=== PATIENT | female | born 1965 | race Caucasian/White ===

== ENCOUNTER 2025-05-31 15:16 | Inpatient (IN) | payer SELFPAY ==
[~2025-05-31] VITALS: Ht 167.6 cm; Wt 62.6 kg
[2025-05-31 15:23] VITALS: O2SAT 98
[2025-05-31] MEDS: SODIUM CHLORIDE 0.9% 1,000 ML IV ONE (15:45)
[2025-05-31 15:56] LABS: BASOPHILS % 0.3 % (0.0-2.0); EOSINOPHILS % 2.2 % (0.0-5.0); HEMATOCRIT. 23.4 % (36.0-48.0); HEMOGLOBIN. 7.6 g/dL (12.0-16.0); LYMPHOCYTES % 14.4 % (20.0-50.0); MEAN PLATELET VOLUME 10.4 fl (7.4-10.4); MONOCYTES % 6.0 % (2.0-8.0); NEUTROPHILS % 77.1 % (40.0-76.0); PLATELET 119 x1000/uL (130-400); RED BLOOD CELL COUNT 2.73 mill/uL (4.2-5.4); RED CELL DISTRIBUTION WIDTH 15.4 % (11.6-14.6)
[2025-05-31 16:11] LABS: TROPONIN I HIGH SENSITIVITY 6 ng/L (3.0-34)
[2025-05-31 16:17] LABS: CREATININE 3.2 mg/dL (0.6-1.0); UREA NITROGEN BLOOD 77 mg/dL (9-23)
[2025-05-31 16:18] LABS: PROTEIN TOTAL 6.0 g/dL (6.0-8.3)
[2025-05-31 16:19] LABS: ASPARTATE AMINOTRANSFERASE 13 IU/L (<34); BILIRUBIN DIRECT < 0.1 mg/dL (<=3.0); BILIRUBIN TOTAL 0.3 mg/dL (0.1-1.0)
[2025-05-31] MEDS ORDERED: SODIUM CHLORIDE 0.9% 1,000 ML IV ONE (17:00)
[2025-05-31 18:32] LABS: BG DEOXYHEMOGLOBIN 21.4 % (0.0-5.0)
[2025-05-31 20:00] VITALS: BP 148/66; PULSE 90; RESP 18; TEMP 35.9; O2SAT 100
[2025-05-31] MEDS ORDERED: ONDANSETRON HCL 4MG/2ML INJ IV PRN (20:30)
[2025-05-31] MEDS ORDERED: ACETAMINOPHEN 325MG TABLET PO PRN ×2 (20:30)
[2025-05-31] MEDS ORDERED: IPRATROPIUM/ALBUTEROL 0.5-3(2.5)MG/3ML NEB HHN PRN (20:30)
[2025-05-31] MEDS ORDERED: CLONIDINE 0.1MG TABLET PO PRN (20:30)
[2025-05-31] MEDS ORDERED: LACTATED RINGERS 1,000 ML IV SCH (21:15)
[2025-05-31 22:00] LABS: CREATININE 3.0 mg/dL (0.6-1.0); UREA NITROGEN BLOOD 70 mg/dL (9-23)
[2025-05-31] MEDS ORDERED: DEXTROSE 50% WATER 50ML SYRINGE IV PRN (22:00)
[2025-05-31] MEDS: BLOOD SUGAR DIAGNOSTIC STRIP TEST SCH (22:02)
[2025-05-31] MEDS: ATORVASTATIN CALCIUM 40MG TABLET PO SCH (22:10)
[2025-05-31] MEDS: INSULIN LISPRO 100 UNITS/ML SUBCUT SCH (22:11)
[2025-05-31 22:12] LABS: FOLIC ACID (FOLATE) SERUM 9.99 ng/mL (>5.38); VITAMIN B12 SERUM 1247 pg/mL (211-911)
[2025-05-31] MEDS: SODIUM CHLORIDE 0.9% 1,000 ML IV SCH (22:12)
[2025-05-31 23:27] VITALS: BP 148/66; PULSE 90; RESP 18; TEMP 35.9732
[2025-06-01] VITALS: BP 134/69; PULSE 90; RESP 20; TEMP 36.2; O2SAT 100
[2025-06-01 01:11] LABS: PHOSPHORUS 4.4 mg/dL (2.5-4.9)
[2025-06-01 04:00] VITALS: BP 131/69; PULSE 84; RESP 17; TEMP 35.8; O2SAT 100
[2025-06-01 07:04] LABS: BASOPHILS % 0.3 % (0.0-2.0); EOSINOPHILS % 3.1 % (0.0-5.0); HEMATOCRIT. 23.8 % (36.0-48.0); HEMOGLOBIN. 7.8 g/dL (12.0-16.0); LYMPHOCYTES % 23.8 % (20.0-50.0); MEAN PLATELET VOLUME 10.3 fl (7.4-10.4); MONOCYTES % 7.2 % (2.0-8.0); NEUTROPHILS % 65.6 % (40.0-76.0); PLATELET 117 x1000/uL (130-400); RED BLOOD CELL COUNT 2.80 mill/uL (4.2-5.4); RED CELL DISTRIBUTION WIDTH 15.3 % (11.6-14.6)
[2025-06-01 07:20] LABS: CREATININE 2.8 mg/dL (0.6-1.0); TRIGLYCERIDE 108.0 mg/dL (0-150); UREA NITROGEN BLOOD 63.0 mg/dL (9-23)
[2025-06-01 07:21] LABS: LDL CHOLESTEROL 58.0 mg/dL (5-100)
[2025-06-01 07:25] LABS: T4 FREE 0.97 ng/dL (0.89-1.76)
[2025-06-01 08:00] VITALS: BP 117/54; PULSE 88; RESP 18; TEMP 36.4; O2SAT 97
[2025-06-01] MEDS: ENOXAPARIN 30MG/0.3ML SYR SUBCUT SCH (09:00)
[2025-06-01] MEDS: INSULIN GLARGINE 100 UNITS/ML SUBCUT SCH (10:00)
[2025-06-01] MEDS: ASPIRIN 81MG EC TABLET PO SCH (10:09)
[2025-06-01] MEDS: AMLODIPINE 10MG TABLET PO SCH (10:10)
[2025-06-01] MEDS: PANTOPRAZOLE SODIUM 40 MG/VIAL IV SCH (10:10)
[2025-06-01 12:00] VITALS: BP 157/68; PULSE 85; RESP 18; TEMP 36.6; O2SAT 100
[2025-06-01] MEDS: SODIUM CHLORIDE 0.9% 1,000 ML IV SCH (14:00)
[2025-06-01 16:00] VITALS: BP 142/69; PULSE 85; RESP 18; TEMP 36.6; O2SAT 100
[2025-06-01 20:00] VITALS: BP 135/72; PULSE 92; RESP 17; TEMP 36.6; O2SAT 98
[2025-06-01] MEDS: EPOETIN ALFA-EPBX 4,000 UNITS/ML VIAL SUBCUT SCH (20:42)
[2025-06-02] VITALS (8 sets, daily range): BP systolic 106–147; BP diastolic 62–88; PULSE 85–91; RESP 14–17; TEMP 36.3–36.7; O2SAT 98–100
[2025-06-02 08:20] LABS: BASOPHILS % 0.2 % (0.0-2.0); EOSINOPHILS % 2.9 % (0.0-5.0); HEMATOCRIT. 23.0 % (36.0-48.0); HEMOGLOBIN. 7.7 g/dL (12.0-16.0); LYMPHOCYTES % 26.4 % (20.0-50.0); MEAN PLATELET VOLUME 10.8 fl (7.4-10.4); MONOCYTES % 6.9 % (2.0-8.0); NEUTROPHILS % 63.6 % (40.0-76.0); PLATELET 118 x1000/uL (130-400); RED BLOOD CELL COUNT 2.72 mill/uL (4.2-5.4); RED CELL DISTRIBUTION WIDTH 15.5 % (11.6-14.6)
[2025-06-02 08:31] LABS: PROTEIN TOTAL 5.7 g/dL (6.0-8.3)
[2025-06-02 08:32] LABS: CREATININE 2.5 mg/dL (0.6-1.0); UREA NITROGEN BLOOD 46 mg/dL (9-23)
[2025-06-02 08:34] LABS: ASPARTATE AMINOTRANSFERASE 15 IU/L (<34); BILIRUBIN DIRECT < 0.1 mg/dL (<=3.0); BILIRUBIN TOTAL 0.3 mg/dL (0.1-1.0); PHOSPHORUS 3.6 mg/dL (2.5-4.9)
[2025-06-02 08:42] LABS: INR 1.0
[2025-06-02] MEDS ORDERED: AMLO10TA80 PO (18:16)
[2025-06-02] MEDS ORDERED: LIP40 PO (18:16)
[2025-06-02] MEDS ORDERED: LANTUSUD SUBCUT (18:16)
[2025-06-02] MEDS ORDERED: ASPI-1406 PO (18:16)
== END 2025-06-02 22:22 | disposition home or self-care (01) | DRG 52 ==
LOC: ER 15:16 → EDBEDREQTM 18:14 → EDBEDREQ 18:14 → ENRESERV 18:38 → 5WST 18:42
PROVIDERS: ADMIT Hospitalist; ATTEND Hospitalist
DX: G93.41 Metabolic encephalopathy (principal); E87.20 Acidosis, unspecified; D69.6 Thrombocytopenia, unspecified; N17.9 Acute kidney failure, unspecified; E86.0 Dehydration; E11.65 Type 2 diabetes mellitus with hyperglycemia; N18.30 Chronic kidney disease, stage 3 unspecified; I13.0 Hypertensive heart and chronic kidney disease with heart failure and stage 1 through stage 4 chronic kidney disease, or unspecified chronic kidney disease; D64.9 Anemia, unspecified; G31.9 Degenerative disease of nervous system, unspecified; G90.89 Other disorders of autonomic nervous system; E11.22 Type 2 diabetes mellitus with diabetic chronic kidney disease; E78.5 Hyperlipidemia, unspecified; S00.10XA Contusion of unspecified eyelid and periocular area, initial encounter; X58.XXXA Exposure to other specified factors, initial encounter; Y93.89 Activity, other specified; Y92.89 Other specified places as the place of occurrence of the external cause; Y99.8 Other external cause status; Z79.4 Long term (current) use of insulin; Z79.82 Long term (current) use of aspirin; Z82.49 Family history of ischemic heart disease and other diseases of the circulatory system; Z95.0 Presence of cardiac pacemaker; Z79.899 Other long term (current) drug therapy
CPT/HCPCS: 36415; 71045; 76770; 80048; 80061; 80076; 82010; 82375; 82550; 82607; 82728; 82746; 82803; 82962; 83036; 83540; 83550; 83605; 83735; 83880; 84100; 84439; 84443; 84484; 85025; 86850; 86900; 86920; 93005; 93306; 93970; 96360; 97165; 99291; J0885; J1650; J1815; J2470; J7030